=== PATIENT | male | born 1985 | race African-American/Black ===

== ENCOUNTER 2018-07-04 19:56 | Emergency (ER) | payer SELFPAY ==
[~2018-07-04] VITALS: Ht 175.3 cm; Wt 82.1 kg
[2018-07-04 21:00] VITALS: BP 124/81
--- NOTE | 2018-07-04 21:10 | NUR ---
ED Nurse Note: pt walked in for right hand check up, pt states he fx right hand 2 wks ago and noted swelling and wanted to get checked. pt states he hasn't follow up with orthopedic yet. noted splint with swelling on right hand, CMS intact, cap refill <3sec, no sx infection noted at this time, will cont monitor.
--- NOTE | 2018-07-04 21:32 | Emergency Room Report ---
History of Present Illness General Chief Complaint: Upper Extremity Injury Source: Patient Present Illness [facility] This is a 32-year-old male who is right-hand dominant. He presents with chief complaint of wound check. He had a boxer fracture that occurred 2 weeks ago. He said he had a fridge and was seen at [place]. He was placed in an ulnar gutter splint. His hand is swollen and he is worried about infection. He has not take off the splint off follow-up yet. Denies any other complaint. Mild pain. No new injury. Allergies: Coded Allergies: No Known Allergies (Unverified , 07/04/18) Patient History Past Medical History: see triage record, old chart reviewed Past Surgical History: none Pertinent Family History: none Social History: Denies: smoking Immunizations: other Reviewed Nursing Documentation: PMH: Agreed; PSxH: Agreed Nursing Documentation-PMH Past Medical History: No Stated History Review of Systems Eye: Denies: eye pain, blurred vision ENT: Denies: ear pain, nose congestion, throat swelling Respiratory: Denies: cough, shortness of breath Cardiovascular: Denies: chest pain, palpitations Gastrointestinal: Denies: abdominal pain, diarrhea, nausea, vomiting Musculoskeletal: Reports: joint pain, joint swelling; Denies: back pain Skin: Denies: rash Neurological: Denies: headache, numbness Endocrine: Denies: increased thirst, increased urine Hematologic/Lymphatic: Denies: easy bruising All Other Systems: negative except mentioned in HPI Physical Exam Vital Signs Date Time Temp Pulse Resp B/P (MAP) Pulse Ox O2 Delivery O2 Flow Rate FiO2 07/04/18 20:52 98.4 56 16 124/81 99 Room Air vitals normal Sp02 EP Interpretation: reviewed, normal General Appearance: well appearing, no apparent distress, alert Head: normocephalic, atraumatic Eyes: bilateral eye PERRL, bilateral eye EOMI ENT: hearing grossly normal, normal pharynx Neck: full range of motion, supple, no meningismus Respiratory: chest non-tender, lungs clear, normal breath sounds Cardiovascular #1: regular rate, rhythm, no murmur Gastrointestinal: normal bowel sounds, non tender, no mass, no organomegaly, no bruit, non-distended Musculoskeletal: back normal, gait/station normal, normal range of motion, other - Right hand: Patient isn't on a gutter splint. The right hand has edema. I took down the splint. There is no blister or laceration. There is no infection. Neurologic: alert, oriented x3 Psychiatric: mood/affect normal Skin: warm/dry Procedures Splinting Splinting : Consent: Verbal Location: Right hand Hand-Made Type: plaster Splint: ulnar Pre-Proc Neuro Vasc Exam: normal Post-Proc Neuro Vasc Exam: normal Patient Tolerated: Well Complications: None Medical Decision Making Diagnostic Impression: Primary Impression: Closed boxer's fracture Qualified Codes: S62.339A - Displaced fracture of neck of unspecified metacarpal bone, initial encounter for closed fracture Additional Impression: Visit for wound check ER Course Patient presents with a boxer's fracture. Edema secondary to Aristides wrapping too tight. I put a new splint and advised patient to follow-up and keep arms elevated. No evidence of any infection. No abrasion. Other X-Ray Diagnostic Results Other X-Ray Diagnostic Results : X-Ray ordered: Right hand x-rays # of Views/Limited Vs Complete: 3 View Indication: Pain EP Interpretation: Yes Interpretation: no dislocation, no soft tissue swelling, other - Boxer fracture Impression: Other - boxer frx Electronically Signed by: Paul Barros MD Last Vital Signs Date Time Temp Pulse Resp B/P (MAP) Pulse Ox O2 Delivery O2 Flow Rate FiO2 07/04/18 20:52 98.4 56 16 124/81 99 Room Air Status: improved Disposition: HOME, SELF-CARE Condition: Stable Additional Instructions: Elevate hand. Ice pack to the area. Follow-up with orthopedic doctor within a week. Return of worse. Paul Barros MD Jul 04, 2018 21:32
--- NOTE | 2018-07-04 21:42 | NUR ---
ED Nurse Note: pt cleared to be d/c per ERMD, pt d/c and aftercare instruction provided, pt education done via discussion and handout, pt advised to follow up with senior engineering specialist per ERMD, list of specialist provided per pt's req, pt verbalized understanding and agrees with plan, splinting done by solar installation technician prior to d/c, cms intact, cap refill <3sec, left w/ all belongings, id band removed.
[2018-07-04 21:45] VITALS: BP 124/81
== END 2018-07-04 21:45 | disposition home or self-care (01) ==
LOC: EMR 21:12
DX: S62.339D Displaced fracture of neck of unspecified metacarpal bone, subsequent encounter for fracture with routine healing (principal); X58.XXXD Exposure to other specified factors, subsequent encounter
CPT/HCPCS: 29125; 99283